=== PATIENT | male | born 1975 | race Caucasian/White ===

== ENCOUNTER → 2023-06-08 | Outpatient (CLI) | payer SELFPAY ==
--- NOTE | 2023-06-08 10:58 | RAD_ITS ---
EXAM: XR RIGHT KNEE COMPLETE, 4 OR MORE VIEWS CLINICAL INDICATION: Injury TECHNIQUE: Four or more views of the right knee. COMPARISON: No relevant prior studies available. FINDINGS: BONES/JOINTS: No acute fracture or subluxation. Knee joint effusion is present. SOFT TISSUES: Normal. No soft tissue swelling or gas. No radiopaque foreign body. RAD/Knee 4 or More Views IMPRESSION: Knee joint effusion. Electronically Signed: Min Nugent MD at 11:29 EDT ,
== END | disposition home or self-care (01) ==
PROVIDERS: Referring Provider Physician Assistant; Visit Provider Physician Assistant
DX: S89.91XA Unspecified injury of right lower leg, initial encounter (principal)
CPT/HCPCS: 73564

== ENCOUNTER → 2025-10-06 | Outpatient (CLI) | payer SELFPAY, OTHER ==
--- NOTE | 2025-10-06 10:16 | RAD_ITS ---
PROCEDURE: CHEST PA AND LATERAL 10/06/2025 REASON FOR EXAM: COUGH TECHNIQUE: Procedure Code: RADCXR Modality: DX Procedure: CHEST PA AND LATERAL COMPARISON: None FINDINGS: Hardware: None Heart: The heart size is normal. Mediastinum: The mediastinal contour is unremarkable. Lungs: Lungs are mildly hyperexpanded with chronic interstitial changes and superimposed right upper lobe opacifications suspicious for infiltrate. Right upper lobe infiltrates can often be caused by aspiration. Consider modified barium swallow for further evaluation to determine if this is a possibility. Bones: Mild degenerative bony changes RAD/Chest PA and Lateral IMPRESSION: Mildly hyperexpanded lungs with chronic interstitial changes and superimposed r ight upper lobe infiltrate. Follow-up recommended to ensure complete resolution Reading Location: [id number]
--- OUTSIDE RECORDS SUMMARY | 2025-10-06 10:38 | XMS RPT_ITS | CCD ---
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 Driver Name Role Phone Care Physician, No Primary Referring Unava ilable Care Physician, No Primary Primary Care Unava ilable Arpan Montes Attending Unavailable Reji Prince Referring Unavailable Reji Prince Primary Care Unavailable Desean Ivy Attending Unavailable Reji Prince Primary Care Unavailable Baldomero Giles Attending Unavailable Reji Prince Referring Unavailable Care Physician, No Primary Primary Care Unava ilable Desean Ivy Referring Unavailable Desean Ivy Attending Unavailable JILLIAN JAVIER - MARSHAL DUMONT Primary Care Phys [facility] Allergies Allergy Classification Reported Allergen(s) Allergy Type Date of Onset Reaction(s) Facility (1 source) Azithromycin Drug Allergy 3 [facility] (1 source) Penicillin Drug Allergy 3 [facility] (1 source) Acetaminophen / HYDROcodone; Translations: [acetaminophen-hy drocodone] Drug Allergy Swelling [facility] (1 source) Azithromycin; Translations: [azithromycin] Drug Allergy Redness, Rash, Mouth swelling, Blisters [facility] (1 source) Penicillin; Translations: [penicillins] Drug Allergy Weal (disorder) [facility] Medications Current Medications Medication Drug Class(es) Dates Sig (Normalized) Sig (Original) [facility] (1 source) Start: 02-12-2021 DME [facility] See Instructions, Pt. to have orthodic inserts, # 1 EA, 0 Refill(s), 80 Start Date: 02/12/21 Status: Ordered Vitamin B Complex oral tablet (1 source) Start: 10-03-2013 take 1 tablet by mouth once daily Vitamin B Complex oral tablet Dose = 1 tab(s), Oral, qDay, # 100 tab(s), 0 Refill(s) Start Date: 10/03/13 Status: Ordered Problems Problem Classification Problem Date Documented Da te Episodic/Chronic Acquired foot deformities (1 source) Talipes planus 02-08-2021 Episodic Joint disorders and dislocations; trauma-related (1 source) Unspecified internal derangement of right knee; Translations: [Unspecified internal derangement of right knee] Onset: 06-08-2023 Chronic Other injuries and conditions due to external causes (2 sources) Unspecified injury of right lower leg, initial encounter; Translations: [Unspecified injury of right lower leg, initial encounter] Onset: 06-08-2023 Episodic Other injuries and conditions due to external causes (1 source) H/O: fracture 02-08-2021 Episodic Other injuries and conditions due to external causes (1 source) H/O: hip fracture 02-08-2021 Episodic Sprains and strains (1 source) Strain of unspecified muscle(s) and tendon(s) at lower leg level, right leg, initial encounter; Translations: [Strain of unspecified muscle(s) and tendon(s) at lower leg level, right leg, initial encounter] Onset: 06-08-2023 Episodic Results Test Name Value Interpretation Reference Range Facil ity Knee 4 or More Viewson 06-08 Knee 4 or More Views [facility] Services [address] [place] [id number] Knee 4 or More Views MR#: [id number] Acct: [id number] Name: SENAIT ARMENTA Rep #: [id number] : 1975 M 47 From: Min Nugent MD PCP: Care Physician,No Primary Status: REG CLI Study: Knee 4 or More Views Date of Exam: 06/08/23 Exam# [id number] Ordering Dr: Desean Booth PA EXAM: XR RIGHT KNEE COMPLETE, 4 OR MORE VIEWS CLINICAL INDICATION: Injury TECHNIQUE: Four or more views of the right knee. COMPARISON: No relevant prior studies available. FINDINGS: BONES/JOINTS: No acute fracture or subluxation. Knee joint effusion is present. SOFT TISSUES: Normal. No soft tissue swelling or gas. No radiopaque foreign body. RAD/Knee 4 or More Views IMPRESSION: Knee joint effusion. Electronically Signed: Min Nugent MD at 11:29 EDT , CC: No Primary Care Physician; NATHAN Anderson Multi Mission Helicopter Aircrewman: Signed Normal [facility] Orthopedic Visit Reporton Orthopedic Visit Report [facility] [address] [place] [address] [address] [place] [address] OFFICE VISIT Date of Service: 06/08/23 MR#: [id number] Acct: [id number] Name: SENAIT ARMENTA Rep #: [id number] : 1975 Provider: NATHAN Sandy Age/Sex: 47/M Location: [facility] Status: Signed Intake Vital Signs 06/08/23 11:10 Height 6 ft 3 in Weight: 175 lb BMI 21.9 BP 104/57 L Blood Pressure Location Lt brachial Position Sitting Respiration 16 Pulse 66 Pulse Source Monitor Pulse Oximetry (%) 92 Oxygen Delivery Method room air Intake Visit Reasons: RIGHT KNEE Chief Complaint: RT KNEE INJURY BACK IN FEBRUARY Is patient in pain?: Yes Pain scale (1-10): 10 Allergies azithromycin Allergy (Mild, Verified 06/08/23 13:07) other penicillin G Allergy (Mild, Verified 06/08/23 13:07) other Medications ibuprofen 200 mg tablet (Advil) 200 mg PO Q6H PRN 06/08/23 [History Confirmed 06/08/23] PFSH Medical History Internal derangement of right knee Shoulder pain Strain of right knee Surgical History History of ankle surgery History of hip surgery Social History Smoking Status: Never smoker alcohol intake: never substance use type: does not use caffeine: Yes what type of physical activity do you participate in: none seatbelt use: always do you feel safe at home: Yes 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 SENAIT ARMENTA is a 47 year old M here today for right knee pain. States that his knee initially started to bother him in february when he was getting off a forklift and put pressure on his knee the wrong way. The pain then started to subside until this past weekend when it flared up again. States that he didn't do anything out of the ordinary, all he did was mow the lawn Thursday night. He then noticed pain Thursday morning and it got worse throughout the day. He does ambulate with crutches. Denies popping/clicking. States his pain is over his posterior knee and on both sides of his knee. States that mobility increases his pain more than putting weight on it. Denies prior issues to the knee. Denies previous surgery on this knee. States that he is taking Advil for the pain. He did have x-rays today when he was seen at the [facility]. Notes that his pain is mostly constant. Ortho Exam General General: Yes no acute distress Neurologic: Yes alert and Yes oriented x3 Right Knee Skin/Wound: No erythema, No ecchymosis and Yes swelling Contralateral Normal: Yes Homans Sign: No 1+: Effusion Knee ROM: No ROM-Extension -20 to 0 and No ROM-Flexion 0-140 Examination: No Med jt line tenderness, Yes Lat jt line tenderness, No TTP inf pole patella, No Crepitus, Yes Pain with flexion, Yes Pain with extention, Yes Hayden's Test, No TTP Patellar tendon, No TTP Tibial tubercle, No TTP Pes Anserine and No Illiotibial band tenderness Stability: NML: Valgus 0 and NML: Valgus 30, 1+: Varus 0 and 1+: Varus 30 and Guarding: Varus 0 and Guarding: Varus 30 Patellar Tilt Normal: Yes Patella Grind: No KNEE: Inspection of the right knee does show some evidence of some minor swelling/effusion compared to the left knee. No localized areas of swelling. He has no ecchymosis/bruising, erythema, or skin c hanges in the knee. Patient does have some scattered what appear to be petechial lesions at same time he has these bilaterally and states that he always has some changes. Patient had a lot of guarding with both active and passive range of motion. At this time he is not able to perform full flexion or extension due to pain. Palpation reveals evident reproducible tenderness just above the lateral joint line over the lateral aspect of the femoral condyle. Minimal lateral joint line tenderness. No medial pains on palpation. Patient has no laxity and no discomfort with valgus stress of the knee. He does however have some increase in laxity/gapping of the LCL with varus stress. Patient also has good amount of pain with some guarding during this maneuver as well. ACL is a little difficult to evaluate as again he is a little guarded with allowing for movements. I do feel like there is an endpoint during anterior drawer/Elio's. Patient does have soft compartments throughout the lower extremity. He has no calf tenderness and a negative Homans. Coding Level of Care Code Off vis,new,level 3 Diagnoses Internal derangement of right knee M23.91 Sprain of lateral collateral ligament of right kne (more content not included)... Normal [facility] Urgent Care Visit Reporton 0 06-08-2023 Urgent Care Visit Report [facility] [address], [address] [place] [id number] OFFICE VISIT Date of Service: 06/08/23 MR#: [id number] Acct: [id number] Name: SENAIT ARMENTA Rep #: [id number] : 1975 Provider: NATHAN Anderson Age/Sex: 47/M Location: [facility] Status: Signed Intake Vital Signs 10/06/22 16:50 06/08/23 11:10 Height 0 in 6 ft 3 in Weight: 175 lb BMI 21.9 BP 104/57 L Blood Pressure Location Lt brachial Position Sitting Respiration 16 Pulse 66 Pulse Source Monitor Pulse Oximetry (%) 92 Oxygen Delivery Method room air Intake Visit Reasons: RT KNEE INJURY Chief Complaint: RT KNEE INJURY BACK IN FEBRUARY Cycle Consultant Required: No Accompanied by: Is patient in pain?: Yes Allergies azithromycin Allergy (Mild, Verified 06/08/23 11:09) other penicillin G Allergy (Mild, Verified 06/08/23 11:09) other Medications ibuprofen 200 mg tablet (Advil) 200 mg PO Q6H PRN 06/08/23 [History Confirmed 06/08/23] PFSH Medical History (Updated 06/08/23 @ 11:30 by Desean EVANS PA) Internal derangement of right knee Shoulder pain Strain of right knee Surgical History History of ankle surgery History of hip surgery Social History Smoking Status: Never smoker alcohol intake: never substance use type: does not use caffeine: Yes what type of physical activity do you participate in: none seatbelt use: always do you feel safe at home: Yes 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 No right hip or right ankle complaints. Patient notes discomfort is predominantly appreciated in the popliteal region with pain aggravated to touch and extending of the right knee. No giving way of the same. PMH NC. [id number] ibuprofen taken and crutches to assist ambulate help some. No other associated symptoms and no alleviating/aggravati ng factors. ROS Const Constitutional: No other (As above) Exam Const General: cooperative, healthy appearing and no acute distress Nutritional Appearance: average body habitus Orientation: alert, awake and oriented x3 Chest Chest palpation inspection: normal inspection of the chest Resp Effort Inspection: normal respiratory effort and able to speak in complete sentences Cardio Rate: regular rate Pulses: radial pulses present Skin General: no rashes or lesions noted Neuro General: patient alert, patient awake, patient oriented x3 and gait normal Cognition: normal cognition Speech: speech normal Extrem General: normal to inspection Other: Exception: Right knee with positive popliteal tenderness with joint effusion, positive Hayden, negative drawer Psych Appearance: grossly normal Mental Status: mental status grossly normal Mood: congruent mood Affect: normal affect Speech and Movement: speech and movement normal Attitude: cooperative Coding Level of Care Code Off vis,est,level 3 Diagnoses Strain of right knee S86.911A Internal derangement of right knee M23.91 Assessment and Plan Assessment and Plan (1) Strain of right knee: Status: Acute (2) Internal derangement of right knee: Status: Acute Plan: Right knee radiographs taken today reveal no acute osseous pathology per my review, pending radiologist interpretation at the time patient discharged. Rest, ice, elevate, Pete wrap as needed/applied/instru cted today. Continue crutch use to assist ambulate as needed. Orthopedic referral placed with [facility] for later today at 1 PM for reassessment and continuation of care. Patient and spouse both state acknowledging understanding all the above. This note was generated with [employer] dictation software. It may contain incorrect words, spelling, and punctuation that were not noted in checking the note before signing. Orders: Orders Knee 4 or More Views Today S89.91XA - Unspecified injury of right lower leg, initial encounter Referrals Orthopedics M23.91 - Unspecified internal derangement of right knee, S86.911A - Strain of unspecified muscle(s) and tendon(s) at lower leg level, right leg, initial encounter 06/08/23 1147 Date Desean Ewing Signature: Date (if applicable) CC: Normal [facility] Urgent Care Visit Reporton 1 12-07-2021 Urgent Care Visit Report [facility] [address] [place] [address] [address] [place] [id number] OFFICE VISIT Date of Service: 10/06/22 MR#: [id number] Acct: [id number] Name: SENAIT ARMENTA Rep #: [id number] : 1975 Provider: NATHAN Friend Age/Sex: 47/M Location: [facility] Status: Signed Intake Vital Signs 10/06/22 16:50 10/06/22 17:00 Height 0 in BP 118/64 Blood Pressure Location Lt brachial Position Sitting Respiration 14 Pulse 51 L Pulse Source Monitor Temp 98.1 F Temp Source Temporal Pulse Oximetry (%) 98 Oxygen Delivery Method room air Intake Visit Reasons: COUGH,FEVER Chief Complaint: sinus congestion, cough Allergies azithromycin Allergy (Mild, Verified 12/18/20 11:13) other penicillin G Allergy (Mild, Verified 12/18/20 11:13) other [facility] Medical History (Updated 10/06/22 @ 17:09 by Baldomero EVANS, PA) Shoulder pain Surgical History (Updated 12/18/20 @ 11:14 by Rayna Betancourt) History of ankle surgery History of hip surgery Social History (Updated 12/18/20 @ 11:37 by Baldomero EVANS, PA) Smoking Status: Never smoker alcohol intake: never substance use type: does not use caffeine: Yes what type of physical activity do you participate in: none seatbelt use: always do you feel safe at home: Yes 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 Patient reports having a subjective fever for the past 5 to 6 days however has not actually taken his temperature. He denies hemoptysis, shortness of breath or difficulty breathing. No nausea, vomiting, diarrhea. No other associated symptoms or alleviating/aggravati ng factors. ROS Const Constitutional: No other (6 system ROS completed with pertinent findings in HPI otherwise normal.) Exam Const General: cooperative and well developed HENMT Head: normal to inspection and atraumatic Ears: hearing grossly normal bilaterally Nose: nasal discharge clear Face and sinus: normal facial exam Mouth: oral mucosae normal Throat: abnormal tonsil bilaterally hypertrophy 1+ Resp Effort Inspection: normal respiratory effort and no audible wheezes Auscultation: Bilateral: Clear to Auscultation Cardio Palpation: normal PMI Rate: regular rate Rhythm: regular rhythm Neuro General: patient alert and CN's II-XI intact bilaterally Psych Appearance: grossly normal Mental Status: mental status grossly normal Coding Level of Care Code Off vis,new,level 3 Diagnoses Acute bronchitis J20.9 Assessment and Plan Assessment and Plan (1) Acute bronchitis: Status: Acute Plan: Benzonatate and Medrol Dosepak as prescribed today. Encouraged to get plenty of rest, drink lots of clear liquids, and use Tylenol or Ibuprofen (unless contraindicated) for fever and comfort. Patient also educated on other symptomatic management techniques. To be seen in 7-10 days if no improvement; sooner if worsening of symptoms. Patient advised of potential red flags and when appropriate to report to the ED. Patient verbalized understanding and agreement with all the above. Medications: New benzonatate 200 mg (2 x 100 mg) PO TID PRN 30 caps 0RF cough methylprednisolone (Medrol (Miguel)) 4 mg PO PER PKG DIR 21 tabs 0RF 6 days 10/06/22 1711 Date Baldomero EVANS Cosignchad Signature: Date (if applicable) CC: Normal [facility] Encounters Encounter Date Encounter Type Care Provider Facility Start: 06-11-2023 End: 06-11-2023 Patient encounter procedure DARIAN EVANS [facility] Start: 06-08-2023 End: 06-08-2023 ambulatory No Primary Care Physician Facility:[facility] Start: 06-08-2023 End: 06-08-2023 ambulatory [facility] Facility:[facility] Start: 10-06-2022 End: 10-06-2022 [facility] Facility:[facility] Procedures Date Procedure Procedure Detail Performing Clinician Arthrodesis of ankle DARIAN EVANS Comment on above: 2011 Open reduction of fr acture with internal fixation DARIAN EVANS Comment on above: 1999 Payers Date Payer Category Payer Unknown [id number] 2022 Self-pay Unknown [id number] [id number] [id number] Unknown [id number] [id number] [id number] Unknown [id number] 2.16.8 [id number] Unknown [id number] 2.16.8 [id number] Social History Date Type Detail Facility Start: 02-08-2021 Tobacco smoking status Never s moked tobacco (finding) [facility] Sex Assigned At Sex [facility] Clinical Note 06-11-2023 Note Date & Type Note Facility 06-11-2023 Note ORIGINAL EXAMINATION: MRI OF THE RIGHT KNEE WITHOUT CONTRAST06/11/2023 10:41 am TECHNIQUE: Multiplanar multisequence MRI of the right knee was performed without the administration of intravenous contrast. COMPARISON: None HISTORY: ORDERING SYSTEM PROVIDED HISTORY: Reason for Exam: RIGHT KNEE INJURY, UNSPECIFIED INTERNAL DERANGEMENT OF RIGHT KNEE pain lateral, medial and posterior-NKI FINDINGS: MUSCLES, TENDONS, AND LIGAMENTS: The anterior cruciate ligament is intact. The posterior cruciate ligament is intact but appears thickened in its proximal portion with mildly increased intrasubstance signal. Consider low-grade sprain. The medial collateral ligament is intact. The lateral collateral ligament complex appears intact but abnormally thickened, with abnormal intermediate and T2 hyperintense signal, and surrounding edema compatible with sprain versus partial tear. The other major lateral supporting structures including the biceps femorals tendon, iliotibial band and the popliteus tendon are intact. Normal extensor mechanism. MENISCI: There is mild grade 1 signal in the posterior horn of the medial meniscus without articular extension. The lateral meniscus is intact. OSSEOUS STRUCTURES AND JOINTS: No fracture or dislocation is evident. No visualized marrow replacing osseous lesions. The hyaline articular cartilage of the femorotibial joint spaces is intact. The hyaline articular cartilage of the patellofemoral joint space is intact. Moderate joint effusion. There is a suprapatellar plica. SOFT TISSUES: No Romero's cyst. There is edema within the soft tissues posterior to the tibiofemoral joint. IMPRESSION: Moderate sprain versus low-grade partial tear of the lateral collateral ligament. No other obvious posterolateral corner injury on this study. Question low-grade sprain of the PCL. Moderate joint effusion and soft tissue edema posterior to the tibiofemoral joint/distal femur. I have personally reviewed the images of this examination and agree with the resident's findings and interpretation. Interpreted by: Greg Loredo MD Preliminary Report By: Ileana Manriquez Electronically signed By Greg Loredo MD Dictated Date: 06/11/2023 12:54:23 PM Prelim Date: 06/11/2023 4:02:58 PM Sign Date: 06/11/2023 4:02:58 PM Ordering Provider: DARIAN MERLOS [facility] Evaluation + Plan note Note Date & Type Note Facility Evaluation + Plan note No data available for this section [facility] Hospital Discharge instructions Note Date & Type Note Facility Hospital Discharge instructions No data available for this section [facility] Progress note Note Date & Type Note Facility Progress note No data available for this section [facility] Summary Purpose Family History No Family History Records Found No data available for this section Advance Directives No Advanced Directives Records Found Additional Source Comments (unrecognized sect ion and content) No Status Records Found INFORMATION SOURCE (unrecogn ized section and content) DATE CREATED AUTHOR 06/08/2023 [facility] Patient Care team informatio n (unrecognized section and content) Care Team Personnel Name: MARSHAL WALSH APRN - [employer]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 This clinical summary was aggregated from multiple sources. Caution should be exercised in using it in the provision of clinical care. This summary normalizes information from multiple sources, and as a consequence, information in this document may materially change the coding, format and clinical context of patient data. In addition, data may be omitted in some cases. CLINICAL DECISIONS SHOULD BE BASED ON THE PRIMARY CLINICAL RECORDS. [facility] provides no warranty or guarantee of the accuracy or completeness of information in this document.
== END | disposition home or self-care (01) ==
PROVIDERS: Referring Provider Physician Assistant Surgical; Visit Provider Physician Assistant Surgical
DX: R05.9 Cough, unspecified (principal)
CPT/HCPCS: 71046